=== PATIENT | female | born 1965 | race Caucasian/White ===

== ENCOUNTER 2018-06-17 09:44 | Outpatient (CLI) | payer MEDICAID ==
--- NOTE | 2018-06-17 12:15 | XRAY Report ---
Reason: OLECRANON BURSITIS,LEFT Procedure Date: 06/17/2018 Accession Number: [id number] / [id number] Procedure: XR - Elbow 2 View LT CPT Code: FULL RESULT: EXAM: LEFT ELBOW RADIOGRAPHY EXAM DATE: 06/17/2018 10:05 AM. CLINICAL HISTORY: Olecranon bursitis, left. COMPARISON: None. TECHNIQUE: 2 views. FINDINGS: Bones: No appreciable fracture or bone lesions. Joints: There is a small elbow effusion with elevation of the anterior and posterior fat pads. Soft Tissues: Calcification in the tendinous insertion of the triceps near the olecranon. IMPRESSION: Small elbow effusion without appreciable fracture. Consider trial of immobilization with repeat imaging in 7-10 days. RADIA
== END 2018-06-17 09:45 | disposition home or self-care (01) ==
LOC: DI 09:44
PROVIDERS: ATTEND Internal Medicine
DX: M70.22 Olecranon bursitis, left elbow (principal); M25.422 Effusion, left elbow

== ENCOUNTER 2018-06-18 09:40 | Emergency (ER) | payer MEDICAID ==
[2018-06-18] MEDS ORDERED: HYDROmorphone 1 MG/ML CARPUJECT IVP STA (11:19)
[2018-06-18] MEDS ORDERED: ONDANSETRON 4 MG/2 ML VIAL IVP STA (11:19)
[2018-06-18] MEDS ORDERED: KETOROLAC 30 MG/ML VIAL IVP STA (11:19)
[2018-06-18] MEDS ORDERED: BUFFERED LIDOCAINE 10 ML SYRINGE SUBQ STA (11:19)
--- NOTE | 2018-06-18 11:22 | ED Physician Documentation ---
PD HPI UPPER EXT INJURY - Stated complaint Stated Complaint: LEFT ELBOW INJ - Chief complaint Chief Complaint: Ext Problem - History obtained from History obtained from: Patient - History of Present Illness Location: Left, Elbow Type of injury: Other (She was holding a 2 x 4 10 days ago and kind of twisted her elbow and felt a severe pain in the elbow. She has had increasing pain and redness of the elbow. There is no associated fevers or chills. She had an x- ray done yesterday showing a joint effusion and calcific tendinitis of the triceps tendon but no fracture.) Review of Systems Ten Systems: 10 systems reviewed and negative Constitutional: denies: Fever, Chills Ears: denies: Loss of hearing, Ear pain GI: denies: Abdominal Pain, Nausea, Vomiting PD PAST MEDICAL HISTORY - Past Medical History Past Medical History: Yes Cardiovascular: Hypertension Respiratory: None Neuro: None Endocrine/Autoimmune: None GI: None TRANSITION LEAD: None : None HEENT: None Psych: None Musculoskeletal: Chronic back pain Derm: None - Past Surgical History Past Surgical History: Yes General: Appendectomy Ortho: Other /TRANSITION LEAD: section - Present Medications Home Medications: Ambulatory Orders Medication Instructions Recorded Confirmed Cephalexin [Keflex] 12/18/15 Epinephrine [Epipen 2-Joao] PRN 12/18/15 HYDROcod/ACETAM 5/325 [[place] 5/325] 1 - 2 ea PO Q6H PRN #15 tablet 12/18/15 Ibuprofen [Motrin] 600 mg PO Q6H PRN 12/18/15 12/18/15 Cephalexin [Keflex] 500 mg PO Q6H #28 capsule 06/18/18 Hydrocodone/Acetaminophen 1 - 2 each PO Q6H PRN #14 tablet 06/18/18 [Hydrocodon-Acetaminophen 5-325] predniSONE [Deltasone] 20 mg PO [id number] #21 tab 06/18/18 - Allergies Allergies/Adverse Reactions: Allergies Allergy/AdvReac Type Severity Reaction Status Date / Time droperidol [From Inapsine] Allergy Hallucinati Verified 06/18/18 10:00 ons venom-honey bee Allergy Anaphylaxis Verified 06/18/18 10:00 [bee venom (honey bee)] diazepam [From Valium] AdvReac Intermediate opposite Verified 06/18/18 10:00 reaction - Social History Does the pt smoke?: Yes Smoking Status: Current every day smoker Does the pt drink ETOH?: No Does the pt have substance abuse?: No - Family History Family history: reports: Non contributory - Immunizations Immunizations are current?: Yes - POLST Patient has POLST: No PD ED PE NORMAL - Vitals Vital signs reviewed: Yes - General General: Alert and oriented X 3, No acute distress - HEENT HEENT: PERRL, EOMI - Neck Neck: Supple, no meningeal sign, No bony TTP - Cardiac Cardiac: RRR, No murmur - Respiratory Respiratory: No respiratory distress, Clear bilaterally - Abdomen Abdomen: Soft, Non tender - Back Back: No CVA TTP, No spinal TTP - Derm Derm: Normal color, Warm and dry - Extremities Extremities: Other (The left elbow is quite tender especially over the lateral side and there is warmth bear with very mild redness. She is basically unable to range it at all and is holding it in slight flexion. Supination and pronation hurts as well.) - Neuro Neuro: Alert and oriented X 3, Normal speech - Psych Psych: Normal mood, Normal affect Results - Vitals Vitals: Vital Signs - 24 hr 06/18/18 09:57 Temperature 36.2 C L Heart Rate 120 H Respiratory 20 Rate Blood Pressure 169/113 H O2 Saturation 100 Oxygen O2 Source Room air - Labs Labs: Laboratory Tests 06/18/18 06/18/18 06/18/18 11:30 11:30 11:30 WBC 13.9 H RBC 4.38 Hgb 14.4 Hct 40.9 MCV 93.3 MCH 32.9 H MCHC 35.3 RDW 12.3 Plt Count 117 L MPV 10.4 Neut # (Auto) 10.0 H Lymph # (Auto) 2.6 [place] # (Auto) 1.0 Eos # (Auto) 0.1 Baso # (Auto) 0.1 Absolute Nucleated RBC 0.01 Nucleated RBC % 0.0 ESR 33 H Sodium 136 Potassium 3.6 Chloride 99 L Carbon Dioxide 26 Anion Gap 11.0 BUN 11 Creatinine 0.7 Estimated GFR (MDRD) 89 Glucose 148 H Calcium 9.5 Total Bilirubin 0.6 AST 20 ALT 20 Alkaline Phosphatase 60 C-Reactive Protein Total Protein 8.3 H Albumin 4.4 Globulin 3.9 Albumin/Globulin Ratio 1.1 Lipase 38 Fluid Source Fluid Color Fluid Clarity Fluid WBC Fluid RBC Fluid Neutrophils % Fluid Lymphocytes % Fluid Monocytes % Fluid Eosinophils % Fluid Macrophages % Fluid Crystals 06/18/18 06/18/18 06/18/18 11:30 11:45 11:45 WBC RBC Hgb Hct MCV MCH MCHC RDW Plt Count MPV Neut # (Auto) Lymph # (Auto) [place] # (Auto) Eos # (Auto) Baso # (Auto) Absolute Nucleated RBC Nucleated RBC % ESR Sodium Potassium Chloride Carbon Dioxide Anion Gap BUN Creatinine Estimated GFR (MDRD) Glucose Calcium Total Bilirubin AST ALT Alkaline Phosphatase C-Reactive Protein 4.1 H Total Protein Albumin Globulin Albumin/Globulin Ratio Lipase Fluid Source JOINT Fluid Color STRAW Fluid Clarity CLOUDY Fluid WBC 608 Fluid RBC 8157 Fluid Neutrophils % 10 Fluid Lymphocytes % 4 Fluid Monocytes % 5 Fluid Eosinophils % 1 Fluid Macrophages % 80 Fluid Crystals NONE SEEN Procedures - Arthrocentesis Joint: Elbow, Left Preparation: Consent obtained, Sterile prep and drape Anesthesia: Lidocaine 1% Fluid: Clear, Sent for cell count, Sent for crystals, Sent for culture, Fluid obtained - cc (4ml). No: Cloudy Aftercare: Dressing applied PD MEDICAL DECISION MAKING - ED course ED course: 52-year-old woman with severe pain of the left elbow, some mild clinical signs of infection with elevated inflammatory markers but her joint fluid is without evidence of septic arthritis. She is feeling better after pain medications here. She may have a mild cellulitis of the left elbow or other inflammatory process and she is started on Keflex and prednisone pending orthopedic follow-up next week. Departure - Departure Disposition: 01 Home, Self Care Clinical Impression: Left elbow pain Condition: Good Record reviewed to determine appropriate education?: Yes Instructions: ED Acute Pain [facility] Follow-Up: Nicolas Rodgers MD [Provider Admit Priv/Credential] - 06/24/18 Prescriptions: Cephalexin [Keflex] 500 mg PO Q6H #28 capsule Hydrocodone/Acetaminophen [Hydrocodon-Acetaminophen 5-325] 1 - 2 each PO Q6H PRN #14 tablet PRN Reason: pain predniSONE [Deltasone] 20 mg PO [id number] #21 tab Comments: Your blood pressure was elevated today on check into the emergency department. This does not mean that you have hypertension, it is a common phenomenon to come to the emergency department and have elevated blood pressure. I recommend that you see your primary care physician within the week to have it rechecked when you are feeling better.
[2018-06-18 11:37] LABS: BASOPHILS # (AUTO) 0.1 10^3/uL (0.0-0.1); EOSINOPHILS # (AUTO) 0.1 10^3/uL (0.0-0.7); EOSINOPHILS % (AUTO) 0.9 %; HGB - HEMOGLOBIN 14.4 g/dL (12.0-16.0); LYMPHOCYTES # (AUTO) 2.6 10^3/uL (1.5-3.5); LYMPHOCYTES % (AUTO) 18.8 %; MEAN CORPUSCULAR HEMOGLOBIN 32.9 pg (27.0-31.0); MEAN CORPUSCULAR HGB CONC 35.3 g/dL (32.0-36.0); MEAN CORPUSCULAR VOLUME 93.3 fL (81.0-99.0); MEAN PLATELET VOLUME 10.4 fL (7.9-10.8); MONOCYTES % (AUTO) 7.1 %; NEUTROPHILS % (AUTO) 72.2 %; PLT - PLATELET COUNT 117 10^3/uL (130-450); RED BLOOD COUNT 4.38 10^6/uL (4.20-5.40); RED CELL DISTRIBUTION WIDTH 12.3 % (12.0-15.0); WHITE BLOOD COUNT 13.9 x10^3/uL (4.8-10.8)
[2018-06-18 11:59] LABS: ALBUMIN 4.4 g/dL (3.2-5.5); ALBUMIN/GLOBULIN RATIO 1.1 (1.0-2.2); BILIRUBIN,TOTAL 0.6 mg/dL (0.2-1.0); CALCIUM 9.5 mg/dL (8.5-10.3); CREATININE 0.7 mg/dL (0.4-1.0); TOTAL PROTEIN 8.3 g/dL (6.7-8.2)
[2018-06-18 12:19] LABS: BF COLOR STRAW; BF SOURCE JOINT
[2018-06-18 12:20] LABS: CC,BF RBC 8157 /mm^3
[2018-06-18 12:40] LABS: EOSINOPHILS %,BODY FLUID 1 %; LYMPHOCYTES %,BODY FLUID 4; MONOCYTES %,BODY FLUID 5 %
[2018-06-18 12:44] LABS: MACROPHAGES %,BODY FLUID 80 %
[2018-06-18] MEDS ORDERED: cephALEXin 250 MG CAPSULE PO STA (12:55)
[2018-06-18] MEDS ORDERED: predniSONE 20 MG TABLET PO STA (12:55)
[2018-06-18 13:19] VITALS: BP 146/80
== END 2018-06-18 13:27 | disposition home or self-care (01) ==
LOC: ED 09:40
DX: M25.522 Pain in left elbow (principal); M25.422 Effusion, left elbow; I10 Essential (primary) hypertension; F17.200 Nicotine dependence, unspecified, uncomplicated
CPT/HCPCS: 20605; 36415; 80053; 83690; 85025; 85651; 86140; 87070; 87205; 89051; 89060; 96374; 99283; A9270; J1170; J7512

== ENCOUNTER 2018-11-16 12:31 | Outpatient (CLI) | payer MEDICAID ==
--- NOTE | 2018-11-16 13:47 | XRAY Report ---
Reason: SACRAL BACK,COCCYGEAL BACK PAIN Procedure Date: 11/16/2018 Accession Number: [id number] / [id number] Procedure: XR - Sacrum/Coccyx CPT Code: FULL RESULT: EXAM: SACRUM AND COCCYX RADIOGRAPHY EXAM DATE: 11/16/2018 12:55 PM. HISTORY: Sacral back, coccygeal back pain. Fall on ice. COMPARISONS: PELVIS 1 VIEW 03/21/2015 4:13 PM. TECHNIQUE: 3 views. FINDINGS: Alignment: Normal. The sacrum and coccyx are normally aligned. Bones: Normal. No fracture or bone lesion. Joints: Normal. The sacroiliac joints and visualized hips are within normal limits. Soft Tissues: Unremarkable. IMPRESSION: No fracture is detected. RADIA
--- NOTE | 2018-11-16 14:16 | XRAY Report ---
Reason: SACRAL BACK,COCCYGEAL BACK PAIN Procedure Date: 11/16/2018 Accession Number: [id number] / [id number] Procedure: XR - Lumbar Spine Complete CPT Code: FULL RESULT: EXAM: LUMBOSACRAL SPINE RADIOGRAPHY EXAM DATE: 11/16/2018 12:56 PM. CLINICAL HISTORY: Sacral back, coccygeal back pain. COMPARISONS: None. TECHNIQUE: 4 views. FINDINGS: Alignment: Osseous neural foramina are preserved on oblique views. There is a mild dextroconvex scoliosis centered about L3. No spondylolisthesis or scoliosis. Bones: Five her-dih-rndhvme lumbar vertebral bodies are present. No fractures or bone lesions. Disks: Degenerative changes with loss of disk space height and endplate sclerosis with marginal osteophytosis are most pronounced at the apex of the scoliosis, L3-L4 and present to a lesser degree at L4-L5. Facets: No degenerative changes. Sacroiliac Joints: There is mild facet arthropathy at L3 and L4 and moderate facet arthropathy at L5. Soft Tissues: Normal. The visualized bowel gas pattern is normal. IMPRESSION: Degenerative changes including scoliosis as described. RADIA
== END 2018-11-16 12:32 | disposition home or self-care (01) ==
LOC: DI 12:31
PROVIDERS: ATTEND Physician Assistant Medical
DX: M51.36 Other intervertebral disc degeneration, lumbar region (principal); M47.816 Spondylosis without myelopathy or radiculopathy, lumbar region
CPT/HCPCS: 72110; 72220

== ENCOUNTER 2019-08-06 08:03 | Emergency (ER) | payer MEDICAID ==
[2019-08-06 08:23] VITALS: BP 179/109
--- NOTE | 2019-08-06 09:48 | ED Physician Documentation ---
PD HPI UPPER EXT INJURY - Stated complaint Stated Complaint: NECK/R ARM PX - Chief complaint Chief Complaint: Ext Problem - History obtained from History obtained from: Patient - History of Present Illness Location: Right, Shoulder Type of injury: Other (No known injury) Timing - onset: How many days ago (7) Timing - duration: Days (7) Timing - details: Still present Worsened by: Moving, Palpating Associated symptoms: Weakness. No: Numbness, Tingling, Swelling Recently seen: Not recently seen - Additonal information Additional information: This is a 53-year-old woman who presents with complaints that she had a neck injury back in 2016 and was supposed to get a fusion in her neck she saw a neurosurgeon and then her friend talked her out of it so she just went through physical therapy and said since that time she is lived with chronic pain in her neck. She woke up 7 days ago with her neck and shoulder being "super painful. She got up babied it could not think of any specific injury and then 2 days ago she actually felt better so she did some laundry and did the dishes and yesterday was in more severe pain last night she had trouble getting comfortable because of the pain. It does radiate down the right lateral posterior arm to about the elbow but nothing down into her hand. She has a headache across the back of her head and into her neck. She is been noticing for the past 7 days that she will wake up at night and her whole entire right arm will be numb. She gets up and moves around and it seems to resolve itself. She is been using Tylenol and ibuprofen rotated every 6 hours for the pain. 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 She says even her friends have noticed that she carries her right shoulder lower than the left and kind of bends her head to the right side. Review of Systems Constitutional: denies: Fever Skin: denies: Rash Musculoskeletal: reports: Neck pain, Extremity pain. denies: Extremity swelling Neurologic: reports: Other (The right arm is weak just because of the pain. She is right-handed.). denies: Generalized weakness, Numbness PD PAST MEDICAL HISTORY - Past Medical History Cardiovascular: Hypertension Respiratory: None Neuro: None Endocrine/Autoimmune: None GI: None MANAGEMENT ACCOUNTS MANAGER: None : None HEENT: None Psych: None Musculoskeletal: Chronic back pain Derm: None - Past Surgical History Past Surgical History: Yes General: Appendectomy Ortho: Other /MANAGEMENT ACCOUNTS MANAGER: section - Present Medications Home Medications: Ambulatory Orders Medication Instructions Recorded Confirmed Hydrocodone/Acetaminophen 1 - 2 each PO Q6H PRN #10 tablet 08/06/19 [Hydrocodon-Acetaminophen 5-325] Lactobacillus Acidophilus 1 each PO 08/06/19 [Probiotic Acidophilus] Lisinopril [Zestril] 40 mg PO 08/06/19 Metoprolol Succinate [Toprol Xl] 100 mg PO 08/06/19 - Allergies Allergies/Adverse Reactions: Allergies Allergy/AdvReac Type Severity Reaction Status Date / Time droperidol [From Inapsine] Allergy Hallucinati Verified 08/06/19 08:23 ons venom-honey bee Allergy Anaphylaxis Verified 08/06/19 08:23 [bee venom (honey bee)] diazepam [From Valium] AdvReac Intermediate opposite Verified 08/06/19 08:23 reaction - Social History Does the pt smoke?: Yes Smoking Status: Current every day smoker Does the pt drink ETOH?: No Does the pt have substance abuse?: No - Immunizations Immunizations are current?: Yes - POLST Patient has POLST: No PD ED PE NORMAL - Vitals Vital signs reviewed: Yes - General General: Alert and oriented X 3, No acute distress, Well developed/nourished - HEENT HEENT: Atraumatic - Neck Neck: No bony TTP, Other (Limited range of motion due to pain. No significant tenderness in the trapezius.) - Cardiac Cardiac: Strong equal pulses - Respiratory Respiratory: No respiratory distress - Derm Derm: Normal color, Warm and dry, No rash - Extremities Extremities: Other (Very limited range of motion of the right shoulder. She has good external rotation but it extremely limited internal rotation and abduction. There is tenderness with palpation over the lateral arm at the posterior deltoid margin. She has 5 4+ out of 5 bicep is unclear if this is diminished due to pain or actual weakness. 5 out of 5 apprentice architect strength bilaterally but stronger on the left than the right. Sensation is intact to light touch over the right deltoid and through the right arm and hand. Reflexes 2+ at the right bicep.) - Neuro Neuro: Alert and oriented X 3, straightening press operator helper 2-12 intact, No motor deficit, No sensory deficit, Normal speech - Psych Psych: Normal mood, Normal affect Results - Vitals Vitals: Vital Signs - 24 hr 08/06/19 08:17 Temperature 37.0 C Heart Rate 110 H Respiratory 18 Rate Blood Pressure 179/109 H O2 Saturation 99 Oxygen O2 Source Room air PD MEDICAL DECISION MAKING - ED course Complexity details: d/w patient ED course: Is a 53-year-old woman with chronic neck pain now has an apparent rotator cuff injury. Is unclear how much of her pain is related to the neck issue versus the rotator cuff. I recommended ibuprofen at 800 mg 3 times a day with food, limiting activity but being careful to continue some range of motion so she does not end up with a frozen shoulder. I did provide a prescription for hydrocodone 10/30/2019 510 tablets that she can use to help her sleep at night. Follow-up with her primary care provider for further evaluation and management. Departure - Departure Disposition: 01 Home, Self Care Clinical Impression: Tendinopathy of rotator cuff Qualifiers: Laterality: right Qualified Code(s): M67.911 - Unspecified disorder of synovium and tendon, right shoulder Condition: Good Instructions: ED Tendinitis Rotator Cuff Follow-Up: Theodore España MD [Primary Care Provider] - Prescriptions: Hydrocodone/Acetaminophen [Hydrocodon-Acetaminophen 5-325] 1 - 2 each PO Q6H PRN #10 tablet PRN Reason: pain Comments: Avoid activities that cause the pain around the shoulder such as twisting but you should try and keep the shoulder mobile with the range of motion exercises we discussed. Take ibuprofen 4 tablets every 8 hours with food for the next 4 to 5 days and ice the upper part of the arm where it is tender. Use the hydrocodone if needed at night to help you sleep but do not take this during the day and drive or operate machinery and do not take additional Tylenol with it. Follow-up with your primary care provider in 1 to 2 weeks for reevaluation and further referral as needed.
== END 2019-08-06 10:37 | disposition home or self-care (01) ==
LOC: ED 08:03
DX: M75.101 Unspecified rotator cuff tear or rupture of right shoulder, not specified as traumatic (principal); M54.2 Cervicalgia; I10 Essential (primary) hypertension; F17.200 Nicotine dependence, unspecified, uncomplicated
CPT/HCPCS: 99282; 99284

== ENCOUNTER 2019-10-21 01:12 | Outpatient (CLI) | payer MEDICAID | END 2019-10-21 01:13 | disposition critical access hospital (66) | LOC: EMS 01:12 | PROVIDERS: ATTEND Surgery | DX: R07.9 Chest pain, unspecified (principal) | CPT/HCPCS: A0425; A0427; A0999 ==

== ENCOUNTER 2019-10-21 01:25 | Emergency (ER) | payer MEDICAID ==
[2019-10-21 01:37] VITALS: BP 141/89
== END 2019-10-21 02:47 | disposition left against medical advice (07) ==
LOC: EDUNIT# → ED 01:25
DX: Z53.21 Procedure and treatment not carried out due to patient leaving prior to being seen by health care provider (principal)
CPT/HCPCS: 93005

== ENCOUNTER 2020-09-21 13:30 | Emergency (ER) | payer MEDICAID ==
[2020-09-21 13:44] VITALS: BP 180/100
--- NOTE | 2020-09-21 14:29 | ED Physician Documentation ---
History of Present Illness - Stated complaint Stated Complaint: LOWER BACK PX - Chief complaint Chief Complaint: Back Pain - Additonal information Additional information: 54-year-old female presents the emergency department for evaluation of 3 weeks lower back pain. She denies any falls or trauma. The pain originates in the mid low back and radiates down her left leg. She does have some mild numbness in the leg without weakness however when she walks she often feels that her leg seth. She has no saddle anesthesia loss of bowel or bladder incontinence or fevers. She has no history of clots or cancer. 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 She did have an MRI completed on 10 September at [facility]. It did show moderate midline disc protrusion L4-L5 with severe spinal canal stenosis. There is also small to moderate paracentral disc protrusion L3-L4 contacting the left L4 nerve root. Patient has been referred to a back surgeon at [place] but appointment is pending. She is taking methocarbamol and Motrin without relief of pain. Review of Systems Constitutional: denies: Fever, Chills Eyes: reports: Reviewed and negative Ears: reports: Reviewed and negative Nose: reports: Reviewed and negative Throat: reports: Reviewed and negative Cardiac: reports: Reviewed and negative Respiratory: reports: Reviewed and negative GI: reports: Reviewed and negative : reports: Reviewed and negative Musculoskeletal: reports: Reviewed and negative Neurologic: reports: Numbness. denies: Generalized weakness, Focal weakness PD PAST MEDICAL HISTORY - Past Medical History Past Medical History: Yes Cardiovascular: Hypertension Respiratory: None Neuro: None Endocrine/Autoimmune: None GI: None SENSOR TECHNICIAN: None : None HEENT: None Psych: None Musculoskeletal: Chronic back pain Derm: None - Past Surgical History Past Surgical History: Yes General: Appendectomy Ortho: Other /SENSOR TECHNICIAN: section - Present Medications Home Medications: Ambulatory Orders Medication Instructions Recorded Confirmed Lisinopril [Zestril] 40 mg PO DAILY 08/06/19 09/21/20 Metoprolol Succinate [Toprol Xl] 100 mg PO DAILY 08/06/19 09/21/20 HYDROcod/ACETAM 5/325 [[place] 5/325] 1 tablet PO DAILY PRN #5 tablet 09/21/20 Methylprednisolone [Medrol] 4 mg PO DAILY #1 09/21/20 - Allergies Allergies/Adverse Reactions: Allergies Allergy/AdvReac Type Severity Reaction Status Date / Time droperidol [From Inapsine] Allergy Hallucinati Verified 09/21/20 13:41 ons venom-honey bee Allergy Anaphylaxis Verified 09/21/20 13:41 [bee venom (honey bee)] diazepam [From Valium] AdvReac Intermediate opposite Verified 09/21/20 13:41 reaction - Social History Does the pt smoke?: Yes Smoking Status: Current every day smoker Does the pt drink ETOH?: No Does the pt have substance abuse?: No - Immunizations Immunizations are current?: Yes - POLST Patient has POLST: No PD ED PE EXPANDED - General General: Alert, No acute distress - Neck Neck: Supple w/out meningeal sx. No: Adenopathy - Cardiac Cardiac: Regular Rate, Regular Rhythm, Radial strong equal - Respiratory Respiratory: Clear to ausultation liliana. No: Distress, Labored - Back Back: Soft tissue tenderness, Straight leg raise + R, Straight leg raise + L, Other (tenderness midline low back extending to the paraspinous muscles. Antalgic gait. No spasm appreciated. Motor strength 5/5 BLE. subjective numbness lateral left thigh and medial left calf). No: Normal exam, CVA TTP right, CVA TTP left - GCS Eye Opening: Spontaneous Motor: Obeys Commands Verbal: Oriented Total: 15 Results - Vitals Vitals: Vital Signs - 24 hr 09/21/20 13:41 Temperature 36.5 C Heart Rate 88 Respiratory 16 Rate Blood Pressure 180/100 H O2 Saturation 100 Oxygen O2 Source Room air PD MEDICAL DECISION MAKING - ED course Complexity details: reviewed results, re-evaluated patient ED course: 54-year-old female presents emergency department with worsening low back pain with radiation to the left leg for 3 weeks. Currently taking Motrin and methocarbamol. She has had an MRI of her low back completed about 10 days ago that does show multilevel degenerative disc changes with severe spinal canal stenosis at L4-L5 as well as moderate disc bulge and protrusion. On exam she does have sciatica. There are no red flags. No fevers, saddle anesthesia loss of bowel or bladder function, history of cancer or injection drug use. I feel that she will do well with a course of steroids and therefore will i nitiate Medrol Dosepak. I am going to prescribe 5 Vicodin tablets for severe pain only. She will continue to follow-up with her primary care provider. Emergent return precautions were discussed for low back pain red flags. Departure - Departure Disposition: 01 Home, Self Care Clinical Impression: Central stenosis of spinal canal Low back pain Qualifiers: Chronicity: acute Back pain laterality: left Sciatica presence: with sciatica Sciatica laterality: sciatica of left side Qualified Code(s): M54.42 - Lumbago with sciatica, left side Condition: Stable Record reviewed to determine appropriate education?: Yes Instructions: ED Sciatica Follow-Up: JESSI SANTILLAN PA-C [Primary Care Provider] - Prescriptions: Methylprednisolone [Medrol] 4 mg PO DAILY #1 HYDROcod/ACETAM 5/325 [[place] 5/325] 1 tablet PO DAILY PRN #5 tablet PRN Reason: Pain Comments: Holley continue to follow-up with the referral to the back surgeon at [place]. I would also like you to schedule with your primary care doctor to discuss longer-term back pain management options. I have prescribed you a 6-day course of steroids which I think will help improve your pain significantly over the next 24 to 48 hours. If at any point you develop fevers, lose control of your bowel or bladder function, or have numbness in the genital area between your legs then please return to the ER for a second evaluation.
== END 2020-09-21 14:45 | disposition home or self-care (01) ==
LOC: ED 13:30
DX: M51.16 Intervertebral disc disorders with radiculopathy, lumbar region (principal); M48.061 Spinal stenosis, lumbar region without neurogenic claudication; I10 Essential (primary) hypertension; F17.200 Nicotine dependence, unspecified, uncomplicated
CPT/HCPCS: 99282; 99284

== ENCOUNTER 2021-11-07 12:21 | Outpatient (CLI) | payer MEDICAID ==
[2021-11-07 17:54] LABS: PT - PROTHROMBIN TIME 11.2 secs (9.9-12.6)
[2021-11-07 18:01] LABS: BILIRUBIN,URINE NEGATIVE (NEGATIVE); GLUCOSE, URINE (UA) NEGATIVE (NEGATIVE); KETONES,URINE (UA) NEGATIVE (NEGATIVE); LEUKOCYTE ESTERASE, URINE NEGATIVE (NEGATIVE); NITRITE,URINE NEGATIVE (NEGATIVE); OCCULT BLOOD,URINE NEGATIVE (NEGATIVE); PROTEIN,URINE NEGATIVE (NEGATIVE); UROBILINOGEN,URINE 0.2 (NORMAL) E.U./dL (NORMAL)
[2021-11-07 18:04] LABS: BASOPHILS # (AUTO) 0.1 10^3/uL (0.0-0.1); EOSINOPHILS # (AUTO) 0.2 10^3/uL (0.0-0.7); EOSINOPHILS % (AUTO) 1.9 %; HCT - HEMATOCRIT 44.2 % (37.0-47.0); HGB - HEMOGLOBIN 15.3 g/dL (12.0-16.0); LYMPHOCYTES # (AUTO) 2.4 10^3/uL (1.5-3.5); LYMPHOCYTES % (AUTO) 26.9 %; MEAN CORPUSCULAR HEMOGLOBIN 34.3 pg (27.0-31.0); MEAN CORPUSCULAR HGB CONC 34.6 g/dL (32.0-36.0); MEAN CORPUSCULAR VOLUME 99.1 fL (81.0-99.0); MEAN PLATELET VOLUME 12.6 fL (7.9-10.8); MONOCYTES # (AUTO) 0.9 10^3/uL (0.0-1.0); MONOCYTES % (AUTO) 9.7 %; NEUTROPHILS # (AUTO) 5.3 10^3/uL (1.5-6.6); NEUTROPHILS % (AUTO) 60.2 %; PLT - PLATELET COUNT 108 10^3/uL (130-450); RED BLOOD COUNT 4.46 10^6/uL (4.20-5.40); RED CELL DISTRIBUTION WIDTH 12.3 % (12.0-15.0); WHITE BLOOD COUNT 8.9 x10^3/uL (4.8-10.8)
[2021-11-07 18:06] LABS: PARTIAL THROMBOPLASTIN TIME 37.5 secs (24.9-33.3)
[2021-11-07 18:15] LABS: BACTERIA,URINE None Seen /HPF (None Seen); CLARITY,URINE CLEAR (CLEAR); RBC,URINE None Seen /HPF (0-5); SQUAMOUS EPITHELIAL CELL,UR FEW Squamous (<= Few); WBC,URINE 0-3 /HPF (0-5)
[2021-11-07 18:43] LABS: % IRON SATURATION 11 % (20-50); ALBUMIN 4.6 g/dL (3.2-5.5); ALBUMIN/GLOBULIN RATIO 1.3 (1.0-2.2); ALKALINE PHOSPHATASE 42 IU/L (42-121); ALT ALANINE AMINOTRANSFERASE 24 IU/L (10-60); AST ASPARTATE AMINOTRANSFERASE 25 IU/L (10-42); BILIRUBIN,TOTAL 0.7 mg/dL (0.2-1.0); BUN - BLOOD UREA NITROGEN 13 mg/dL (6-20); CALCIUM 9.9 mg/dL (8.5-10.3); CARBON DIOXIDE - CO2 27 mmol/L (21-32); CHLORIDE 101 mmol/L (101-111); CHOLESTEROL 241 mg/dL; CREATININE 0.8 mg/dL (0.4-1.0); GFR - MDRD 75 (>89); GLUCOSE 108 mg/dL (70-100); HDL CHOLESTEROL 48 mg/dL; IRON 47 ug/dL (28-170); LDL CHOLESTEROL,CALCULATED 136 mg/dL; LDL/HDL RATIO 2.8 (<4.4); POTASSIUM 4.5 mmol/L (3.5-5.0); SODIUM 139 mmol/L (135-145); TOTAL IRON BINDING CAPACITY 424 ug/dL (250-450); TOTAL PROTEIN 8.2 g/dL (6.7-8.2); TRANSFERRIN 303 mg/dL (192-382); TRIGLYCERIDES 285 mg/dL; VLDL CHOLESTEROL 57 mg/dL
[2021-11-07 18:50] LABS: THYROID STIMULATING HORMONE 1.31 uIU/mL (0.34-5.60)
[2021-11-07 18:56] LABS: FERRITIN 90.2 ng/mL (11.0-306.8)
== END 2021-11-07 12:22 | disposition home or self-care (01) ==
LOC: LAB.N 12:21
PROVIDERS: ATTEND Physician Assistant
DX: Z01.812 Encounter for preprocedural laboratory examination (principal); I10 Essential (primary) hypertension; Z13.220 Encounter for screening for lipoid disorders; Z13.9 Encounter for screening, unspecified; Z13.29 Encounter for screening for other suspected endocrine disorder
CPT/HCPCS: 36415; 80050; 80061; 81001; 82306; 82728; 83540; 83721; 84466; 85610; 85730; 87086

== ENCOUNTER 2023-10-09 08:00 | Outpatient (CLI) | payer MEDICAID ==
[2023-10-09 12:22] LABS: BASOPHILS # (AUTO) 0.1 10^3/uL (0.0-0.1); EOSINOPHILS # (AUTO) 0.3 10^3/uL (0.0-0.7); HCT - HEMATOCRIT 47.3 % (37.0-47.0); HGB - HEMOGLOBIN 15.4 g/dL (12.0-16.0); LYMPHOCYTES # (AUTO) 3.2 10^3/uL (1.5-3.5); LYMPHOCYTES % (AUTO) 25.3 %; MEAN CORPUSCULAR HEMOGLOBIN 32.9 pg (27.0-31.0); MEAN CORPUSCULAR HGB CONC 32.6 g/dL (32.0-36.0); MEAN CORPUSCULAR VOLUME 101.1 fL (81.0-99.0); MEAN PLATELET VOLUME 12.4 fL (7.9-10.8); MONOCYTES # (AUTO) 1.1 10^3/uL (0.0-1.0); MONOCYTES % (AUTO) 8.4 %; NEUTROPHILS # (AUTO) 7.9 10^3/uL (1.5-6.6); NEUTROPHILS % (AUTO) 62.8 %; PLT - PLATELET COUNT 125 10^3/uL (130-450); RED BLOOD COUNT 4.68 10^6/uL (4.20-5.40); RED CELL DISTRIBUTION WIDTH 13.2 % (12.0-15.0); WHITE BLOOD COUNT 12.5 x10^3/uL (4.8-10.8)
[2023-10-09 12:58] LABS: ALBUMIN 4.3 g/dL (3.2-5.5); ALBUMIN/GLOBULIN RATIO 1.4 (1.0-2.2); ALKALINE PHOSPHATASE 47 IU/L (42-121); ALT ALANINE AMINOTRANSFERASE 17 IU/L (10-60); AST ASPARTATE AMINOTRANSFERASE 17 IU/L (10-42); BILIRUBIN,TOTAL 0.5 mg/dL (0.2-1.0); BUN - BLOOD UREA NITROGEN 12 mg/dL (6-20); CALCIUM 10.1 mg/dL (8.5-10.3); CARBON DIOXIDE - CO2 29 mmol/L (21-32); CHLORIDE 104 mmol/L (101-111); CHOL/HDL RATIO 5.4 (<4.4); CHOLESTEROL 223 mg/dL; CREATININE 0.9 mg/dL (0.6-1.3); GFR - MDRD 65 (>89); GLUCOSE 116 mg/dL (74-104); HDL CHOLESTEROL 41 mg/dL; LDL CHOLESTEROL,CALCULATED 108 mg/dL; LDL/HDL RATIO 2.6 (<4.4); POTASSIUM 4.2 mmol/L (3.5-4.5); SODIUM 140 mmol/L (135-145); TOTAL PROTEIN 7.4 g/dL (6.4-8.9); TRIGLYCERIDES 371 mg/dL (48-352); VLDL CHOLESTEROL 74 mg/dL
[2023-10-09 13:00] LABS: THYROID STIMULATING HORMONE 1.74 uIU/mL (0.34-5.60)
== END 2023-10-09 08:01 | disposition home or self-care (01) ==
LOC: LAB.N 08:00
PROVIDERS: ATTEND Physician Assistant
DX: E55.9 Vitamin D deficiency, unspecified (principal); I10 Essential (primary) hypertension; E78.5 Hyperlipidemia, unspecified
CPT/HCPCS: 36415; 80050; 80061; 82306; 83721